=== PATIENT | male | born 1965 | race Caucasian/White ===

== ENCOUNTER 2022-10-19 13:11 | Emergency (ER) | payer BC ==
[2022-10-19 13:32] VITALS: RESP 18; TEMP 98.5; BMI 25.7
[2022-10-19 14:27] LABS: VENOUS BASE EXCESS 1.5 mmol/L (-2-2); VENOUS O2 SATURATION 53.7 % (70-80); VENOUS PCO2 46.2 mmHg (38-52); VENOUS PH 7.387 (7.310-7.410)
[2022-10-19 14:28] LABS: EOS % 1.8 % (0-4.5); HEMATOCRIT 42.8 % (35.4-49); HEMOGLOBIN 14.6 GM/dL (11.7-16.9); LYMPH % 42.9 % (8-40); MCHC 34.1 g/dl (32.0-35.9); MEAN CELL VOLUME 96.7 fl (80-96); MEAN PLT VOLUME 9.2 fl (7.5-11.1); MONO % 6.3 % (3.8-10.2); PLATELET COUNT 218 10^3/uL (134-434); RBC 4.42 M/mm3 (4.00-5.60); WHITE BLOOD COUNT 5.7 K/mm3 (4.0-10.0)
[2022-10-19 14:51] LABS: CHLORIDE 102 mmol/L (98-107); SODIUM 138 mmol/L (136-145)
[2022-10-19 14:54] LABS: ANION GAP 9 MMOL/L (8-16); BLOOD UREA NITROGEN 11.4 mg/dL (7-18); CALCIUM 8.9 mg/dL (8.5-10.1); CO2 27 mmol/L (21-32); GLUCOSE,RANDOM 300 mg/dL (74-106); LIPASE 175 U/L (73-393)
[2022-10-19 14:57] LABS: CREATININE 0.7 mg/dL (0.55-1.3); SGOT/AST 39 U/L (15-37); SGPT/ALT 58 U/L (13-61)
[2022-10-19 14:59] LABS: BILIRUBIN,TOTAL 0.4 mg/dL (0.2-1)
[2022-10-19 15:00] LABS: ALK PHOS 142 U/L (45-117)
[2022-10-19 15:02] LABS: N-TERMINAL BNP < 5.0 pg/ml (5-125)
[2022-10-19] MEDS ORDERED: SODIUM CHLORIDE 0.9% 500 ML INFUS.BAG IV ONE (15:18)
[2022-10-19 15:42] LABS: MAGNESIUM 2.2 mg/dL (1.8-2.4)
[2022-10-19 15:45] LABS: PHOSPHOROUS 3.6 mg/dL (2.5-4.9)
[2022-10-19] MEDS ORDERED: FOLIC ACID 1 MG TABLET (FP) PO ONE (15:56)
[2022-10-19] MEDS ORDERED: THIAMINE HCL 100 MG TABLET (FP) PO ONE (15:56)
[2022-10-19] MEDS ORDERED: THIAMINE HCL 100 MG TABLET (FP) ONE (16:36)
[2022-10-19] MEDS ORDERED: FOLIC ACID 1 MG TABLET (FP) ONE (16:36)
[2022-10-19 17:23] LABS: INR 1.15 (0.83-1.09); PROTHROMBIN TIME (PATIENT) 13.2 SEC (9.7-13.0)
[2022-10-19 19:53] VITALS: BP 138/86; PULSE 85
== END 2022-10-19 19:54 | disposition home or self-care (01) ==
LOC: JERFT 13:11
DX: R73.9 Hyperglycemia, unspecified (principal)
CPT/HCPCS: 36415; 71046-TC-FY; 71275-TC; 80053; 80307; 82010; 82803; 82962; 83690; 83735; 83880; 84100; 84443; 84484; 85025; 85610; 93005; 93010; 99285-25; Q9967

== ENCOUNTER 2022-11-23 04:07 | Day surgery (SDC) | payer BC ==
[2022-11-18 15:56] VITALS: BMI 25.7
[2022-11-23] MEDS ORDERED: DEXAMETHASONE SOD PHOSPHATE 10 MG/1 ML VIAL ONE (11:05)
[2022-11-23] MEDS ORDERED: BUPIVACAINE HCL/PF 0.5% (5MG/ML) 10 ML VIAL ONE (11:06)
[2022-11-23] MEDS ORDERED: MIDAZOLAM HCL 2 MG/2 ML SINGLE DOSE VIAL ONE (11:06)
[2022-11-23] MEDS ORDERED: PROPOFOL 20 ML ONE (11:32)
[2022-11-23] MEDS ORDERED: ceFAZolin SODIUM 1 GM VIAL ONE ×2 (11:56)
[2022-11-23] MEDS ORDERED: ceFAZolin SODIUM 1 GM VIAL IVPB ONE (11:58)
[2022-11-23] MEDS ORDERED: ONDANSETRON 4 MG/2 ML VIAL IVPUSH PRN (12:29)
[2022-11-23] MEDS ORDERED: ACETAMINOPHEN 325 MG TABLET (FP) PO PRN (12:29)
[2022-11-23] MEDS ORDERED: oxyCODONE HCL 5 MG TABLET PO PRN (12:29)
[2022-11-23] MEDS ORDERED: LACTATED RINGERS SOLUTION 1,000 ML IV SCH (12:30)
[2022-11-23 17:38] VITALS: BP 154/83; PULSE 90; RESP 16; TEMP 98
== END 2022-11-23 17:40 | disposition home or self-care (01) ==
LOC: JASU-SURG 04:07
PROVIDERS: ATTEND Orthopaedic Surgery
PROC: 0QSJ04Z Reposition Right Fibula with Internal Fixation Device, Open Approach (ICD-10-PCS; 2022-11-23)
PROC: 0QSG04Z Reposition Right Tibia with Internal Fixation Device, Open Approach (ICD-10-PCS; principal; 2022-11-23 10:15)
DX: S82.861A Displaced Maisonneuve's fracture of right leg, initial encounter for closed fracture (principal); S93.431A Sprain of tibiofibular ligament of right ankle, initial encounter; X58.XXXA Exposure to other specified factors, initial encounter; Y93.9 Activity, unspecified; Y92.9 Unspecified place or not applicable; Y99.9 Unspecified external cause status
CPT/HCPCS: 27792; 27829; C1713; 82962; 94760; J1100

== ENCOUNTER 2024-07-02 16:55 | Emergency (ER) | payer BC ==
[2024-07-02 17:08] VITALS: BP 129/94; PULSE 84; RESP 18; TEMP 97.6; BMI 26.1
== END 2024-07-02 18:42 | disposition home or self-care (01) ==
LOC: JERFT 16:55
PROC: 2W3FX1Z Immobilization of Left Hand using Splint (ICD-10-PCS; principal; 2024-07-02)
DX: S52.592A Other fractures of lower end of left radius, initial encounter for closed fracture (principal); W10.8XXA Fall (on) (from) other stairs and steps, initial encounter
CPT/HCPCS: 73090-TC-LT-FY; 73110-TC-LT-FY; 73130-TC-LT-FY; 99283-25